=== PATIENT | male | born 1950 | race Caucasian/White ===

== ENCOUNTER 2018-12-13 13:22 | Emergency (ER) | payer MEDICARE ==
[2018-12-13 13:57] VITALS: BP 125/74
--- NOTE | 2018-12-13 14:54 | UC ---
Ear Complaint HPI - HPI Summary HPI Summary: tickling sensation in left ear--is concerned it is an aunt - History of Current Complaint Chief Complaint: UCEar Stated Complaint: FB IN EAR Time Seen by Provider: 12/13/18 14:44 Hx Obtained From: Patient Onset/Duration: Gradual Onset, Lasting Days - 2, Still Present Pain Intensity: 0 Pain Scale Used: 0-10 Numeric Aggravating Factors: FB - ?? - Allergies/Home Medications Allergies/Adverse Reactions: Allergies Allergy/AdvReac Type Severity Reaction Status Date / Time No Known Allergies Allergy Verified 12/13/18 13:57 Home Medications: Home Medications BuPROPion XL* [Bupropion XL*] 300 mg PO DAILY 12/13/18 [History Confirmed ] Carbidopa/Levodop CR 50/200(*) [Sinemet CR 50/200(*)] 1 tab.cr PO 12/13/18 [ History] Carbidopa/Levodopa 36.25-145mg [Rytary ER 36.25 mg-145 mg Cap] 1 dose PO [History Confirmed 12/13/18] Cyanocobalamin TAB* [Vitamin B12 TAB*] 500 mcg PO DAILY 12/13/18 [History Confirmed 12/13/18] Diazepam TAB(*) [Valium TAB(*)] 5 mg PO TID PRN 12/13/18 [History Confirmed ] Escitalopram * [Lexapro 10 mg (NF)] 10 mg PO DAILY 12/13/18 [History Confirmed 12/13/18] Furosemide TAB* [Lasix TAB*] 20 mg PO DAILY 12/13/18 [History Confirmed 12/13/18 ] Glycopyrrolate 1 mg PO 12/13/18 [History Confirmed 12/13/18] Linaclotide [Linzess] 290 mcg PO DAILY 12/13/18 [History Confirmed 12/13/18] Potassium Chlor TAB* [Klor Con ER TAB*] 20 meq PO DAILY 12/13/18 [History Confirmed 12/13/18] Pregabalin 75 mg PO DAILY 12/13/18 [History Confirmed 12/13/18] PMH/Surg Hx/FS Hx/Imm Hx Previously Healthy: No GI/ History: Gastroesophageal Reflux Neurological History: Other Other Neurological History: Parkinsons Psychological History: Depression - Surgical History Surgical History: Yes Surgery Procedure, Year, and Place: TONSILS 1961. BLADDER BIOPSY - Family History Known Family History: Positive: None - Social History Occupation: Retired Lives: Alone Alcohol Use: Weekly Substance Use Type: None Smoking Status (MU): Never Smoked Tobacco Review of Systems All Other Systems Reviewed And Are Negative: Yes Constitutional: Positive: Negative Skin: Positive: Negative Eyes: Positive: Negative ENT: Positive: Ear Ache - ?fb left ear Respiratory: Positive: Negative Cardiovascular: Positive: Negative Gastrointestinal: Positive: Negative Genitourinary: Positive: Negative Motor: Positive: Negative Neurovascular: Positive: Negative Musculoskeletal: Positive: Negative Neurological: Positive: Negative Psychological: Positive: Negative Is Patient Immunocompromised?: No Physical Exam Triage Information Reviewed: Yes Appearance: Well-Appearing, No Pain Distress, Well-Nourished Vital Signs: Initial Vital Signs Temp 98.7 F 12/13/18 13:52 Pulse 80 12/13/18 13:52 Resp 16 12/13/18 13:52 BP 125/74 12/13/18 13:52 Pulse Ox 97 12/13/18 13:52 Vital Signs Reviewed: Yes Eye Exam: Normal Eyes: Positive: Conjunctiva Clear ENT Exam: Normal ENT: Positive: Normal ENT inspection, Hearing grossly normal, TMs normal - small amount of wax in left canal. Negative: Nasal congestion, Trismus, Muffled voice, Hoarse voice Dental Exam: Normal Neck exam: Normal Neck: Positive: Supple, Nontender, No Lymphadenopathy Respiratory Exam: Normal Respiratory: Positive: Chest non-tender, No respiratory distress, No accessory muscle use Cardiovascular Exam: Normal Cardiovascular: Positive: RRR, Pulses Normal, Brisk Capillary Refill Musculoskeletal Exam: Normal Musculoskeletal: Positive: Strength Intact, ROM Intact, No Edema Neurological Exam: Normal Neurological: Positive: Alert, Muscle Tone Normal Psychological Exam: Normal Skin Exam: Normal Re-Evaluation - Re-Evaluation First Eval Change: Improved Ear Complaint Course/Dx - Course Course Of Treatment: may use waxing softening tratment s prn follow with pcp prn - Differential Dx/Diagnosis Provider Diagnosis: Cerumen debris on tympanic membrane of left ear Discharge - Sign-Out/Discharge Documenting (check all that apply): Patient Departure All imaging exams completed and their final reports reviewed: No Studies - Discharge Plan Condition: Stable Disposition: HOME Patient Education Materials: Cerumen Impaction (ED) Referrals: Tiarra Pascual MD [Primary Care Provider] - If Needed - Billing Disposition and Condition Condition: STABLE Disposition: Home
== END 2018-12-13 15:14 | disposition home or self-care (01) ==
LOC: UCEAST 13:22
DX: H61.22 Impacted cerumen, left ear (principal); K21.9 Gastro-esophageal reflux disease without esophagitis; F32.9 Major depressive disorder, single episode, unspecified; G20 Parkinson's disease
CPT/HCPCS: 99213; G0463

== ENCOUNTER 2021-03-02 14:14 | Inpatient (IN) ==
[2021-03-02] MEDS ORDERED: Magnesium Hydroxide LIQ 30 ML UDC PO PRN (15:40)
[2021-03-02] MEDS ORDERED: Al Hydrox/Mg Hydrox/Simet LIQ 30 ML UDC PO PRN (15:40)
[2021-03-02] MEDS ORDERED: Senna TAB 8.6 mg TAB PO PRN (15:40)
[2021-03-02] MEDS: Carbidopa/Levodop CR 50/200 TAB.CR PO SCH (23:36)
[2021-03-02] MEDS: LEVODOPA PO SCH (23:36)
[2021-03-02] MEDS: CARBIDOPA PO SCH (23:36)
[2021-03-02] MEDS: GLYCOPYRROLATE 1 MG PO SCH (23:37)
[2021-03-02] MEDS: PTO: Multivitamins/Mins AREDS2 (NF) CAP PO SCH (23:38)
[2021-03-02] MEDS: Enoxaparin 40 MG/0.4 ML SYR SUBCUT SCH (23:38)
[2021-03-03 03:34] LABS: Urine Appearance Clear; Urine Bilirubin Negative (Negative); Urine Blood Negative (Negative); Urine Color Yellow; Urine Glucose Negative (Negative); Urine Ketones Trace (Negative); Urine Nitrite Negative (Negative); Urine Protein Negative (Negative); Urine Specific Gravity 1.015 (1.002-1.030); Urine Urobilinogen Negative (Negative)
[2021-03-03 07:26] LABS: ABS Basophils 0.1 10^3/ul (0-0.2); ABS Eosinophils 0.2 10^3/ul (0-0.6); ABS Lymphocytes 1.4 10^3/ul (1.0-4.8); ABS Monocytes 0.9 10^3/ul (0-0.8); ABS Neutrophils 4.9 10^3/ul (1.5-7.7); Eosinophil % 2.8 %; Hematocrit 40 % (42-52); Hemoglobin 13.3 g/dL (14.0-18.0); Lymphocyte % 18.7 %; Mean Corpuscular HGB Conc 34 g/dL (31-36); Mean Corpuscular Hemoglobin 32 pg (27-31); Mean Corpuscular Volume 95 fL (80-94); Mean Platelet Volume 7.8 fL (7.4-10.4); Nucleated Red Blood Cells % 0.1; Platelet Count 312 10^3/uL (150-450); Red Cell Distribution Width 14 % (10-15); White Blood Count 7.4 10^3/uL (3.5-10.8)
[2021-03-03 07:44] LABS: ALT < 3 U/L (7-52); AST 11 U/L (13-39); Albumin 3.5 g/dL (3.2-5.2); Albumin/Globulin Ratio 1.3 (1-3); Alkaline Phosphatase 101 U/L (35-149); Anion Gap 4 mmol/L (2-11); Blood Urea Nitrogen 11 mg/dL (6-24); CO2 Carbon Dioxide 32 mmol/L (22-32); Calcium 8.5 mg/dL (8.6-10.3); Chloride 101 mmol/L (101-111); Globulin 2.8 g/dL (2-4); Glucose 93 mg/dL (70-100); Potassium 3.6 mmol/L (3.5-5.0); Sodium 137 mmol/L (135-145); Total Protein 6.3 g/dL (6.4-8.9)
[2021-03-03] MEDS: LEVODOPA PO SCH ×6 (08:12→20:37)
[2021-03-03] MEDS: CARBIDOPA PO SCH ×6 (08:12→20:37)
[2021-03-03] MEDS: GLYCOPYRROLATE 1 MG PO SCH ×2 (08:13→20:15)
[2021-03-03] MEDS: PTO: Linaclotide 290 mcg CAP (NF) PO SCH (08:14)
[2021-03-03] MEDS: Potassium Chloride LIQUID 20 MEQ/15 ML LIQUID PO SCH (09:31)
[2021-03-03] MEDS: DEXTROAMPHETAMINE 15 MG PO SCH (09:32)
[2021-03-03] MEDS: Carbidopa/Levodop CR 50/200 TAB.CR PO SCH ×2 (09:32→20:17)
[2021-03-03] MEDS: Polyethylene Glycol 3350 17 GM PACKET PO SCH (09:33)
[2021-03-03] MEDS: PTO: Multivitamins/Mins AREDS2 (NF) CAP PO SCH ×2 (09:33→20:37)
[2021-03-03] MEDS: Cholecalciferol (VIT D3) 1,000 unit TAB PO SCH (09:33)
[2021-03-03] MEDS: Enoxaparin 40 MG/0.4 ML SYR SUBCUT SCH (20:30)
[2021-03-04] MEDS: Carbidopa/Levodop CR 50/200 TAB.CR PO SCH ×2 (08:10→20:16)
[2021-03-04] MEDS: LEVODOPA PO SCH ×5 (08:10→20:24)
[2021-03-04] MEDS: CARBIDOPA PO SCH ×5 (08:10→20:24)
[2021-03-04] MEDS: GLYCOPYRROLATE 1 MG PO SCH ×2 (08:12→20:25)
[2021-03-04] MEDS: PTO: Linaclotide 290 mcg CAP (NF) PO SCH (08:15)
[2021-03-04] MEDS: DEXTROAMPHETAMINE 15 MG PO SCH (08:15)
[2021-03-04] MEDS: Potassium Chloride LIQUID 20 MEQ/15 ML LIQUID PO SCH (08:16)
[2021-03-04] MEDS: Polyethylene Glycol 3350 17 GM PACKET PO SCH (08:16)
[2021-03-04] MEDS: Cholecalciferol (VIT D3) 1,000 unit TAB PO SCH (08:16)
[2021-03-04] MEDS: PTO: Multivitamins/Mins AREDS2 (NF) CAP PO SCH ×2 (08:17→20:27)
[2021-03-04] MEDS: Enoxaparin 40 MG/0.4 ML SYR SUBCUT SCH (20:28)
[2021-03-05] MEDS: Carbidopa/Levodop CR 50/200 TAB.CR PO SCH ×2 (08:16→20:03)
[2021-03-05] MEDS: LEVODOPA PO SCH ×5 (08:17→20:08)
[2021-03-05] MEDS: CARBIDOPA PO SCH ×5 (08:17→20:08)
[2021-03-05] MEDS: Cholecalciferol (VIT D3) 1,000 unit TAB PO SCH (08:21)
[2021-03-05] MEDS: DEXTROAMPHETAMINE 15 MG PO SCH (08:22)
[2021-03-05] MEDS: PTO: Multivitamins/Mins AREDS2 (NF) CAP PO SCH ×2 (08:24→20:07)
[2021-03-05] MEDS: Potassium Chloride LIQUID 20 MEQ/15 ML LIQUID PO SCH (08:24)
[2021-03-05] MEDS: Polyethylene Glycol 3350 17 GM PACKET PO SCH (08:24)
[2021-03-05] MEDS: PTO: Linaclotide 290 mcg CAP (NF) PO SCH (08:25)
[2021-03-05] MEDS: GLYCOPYRROLATE 1 MG PO SCH ×2 (08:26→19:58)
[2021-03-05] MEDS: Enoxaparin 40 MG/0.4 ML SYR SUBCUT SCH (20:07)
[2021-03-06] MEDS: Polyethylene Glycol 3350 17 GM PACKET PO SCH (08:04)
[2021-03-06] MEDS: LEVODOPA PO SCH ×5 (08:06→20:27)
[2021-03-06] MEDS: CARBIDOPA PO SCH ×5 (08:06→20:27)
[2021-03-06] MEDS: Carbidopa/Levodop CR 50/200 TAB.CR PO SCH ×2 (08:07→20:12)
[2021-03-06] MEDS: Cholecalciferol (VIT D3) 1,000 unit TAB PO SCH (08:07)
[2021-03-06] MEDS: DEXTROAMPHETAMINE 15 MG PO SCH (08:07)
[2021-03-06] MEDS: GLYCOPYRROLATE 1 MG PO SCH ×2 (08:08→20:10)
[2021-03-06] MEDS: Potassium Chloride LIQUID 20 MEQ/15 ML LIQUID PO SCH (08:10)
[2021-03-06] MEDS: PTO: Linaclotide 290 mcg CAP (NF) PO SCH (08:10)
[2021-03-06] MEDS: PTO: Multivitamins/Mins AREDS2 (NF) CAP PO SCH ×2 (08:13→20:14)
[2021-03-06] MEDS: Enoxaparin 40 MG/0.4 ML SYR SUBCUT SCH (20:13)
[2021-03-07] MEDS: Polyethylene Glycol 3350 17 GM PACKET PO SCH (08:12)
[2021-03-07] MEDS: Potassium Chloride LIQUID 20 MEQ/15 ML LIQUID PO SCH (08:17)
[2021-03-07] MEDS: Carbidopa/Levodop CR 50/200 TAB.CR PO SCH ×2 (08:17→20:18)
[2021-03-07] MEDS: LEVODOPA PO SCH ×5 (08:18→20:19)
[2021-03-07] MEDS: CARBIDOPA PO SCH ×5 (08:18→20:19)
[2021-03-07] MEDS: GLYCOPYRROLATE 1 MG PO SCH ×2 (08:19→20:11)
[2021-03-07] MEDS: PTO: Linaclotide 290 mcg CAP (NF) PO SCH (08:20)
[2021-03-07] MEDS: Cholecalciferol (VIT D3) 1,000 unit TAB PO SCH (10:35)
[2021-03-07] MEDS: PTO: Multivitamins/Mins AREDS2 (NF) CAP PO SCH ×2 (10:38→20:20)
[2021-03-07] MEDS: DEXTROAMPHETAMINE 15 MG PO SCH (10:38)
[2021-03-07] MEDS: Enoxaparin 40 MG/0.4 ML SYR SUBCUT SCH (20:20)
[2021-03-08 05:04] VITALS: BP 132/80
[2021-03-08] MEDS: Carbidopa/Levodop CR 50/200 TAB.CR PO SCH (08:59)
[2021-03-08] MEDS: LEVODOPA PO SCH (09:00)
[2021-03-08] MEDS: CARBIDOPA PO SCH (09:00)
[2021-03-08] MEDS: GLYCOPYRROLATE 1 MG PO SCH (09:00)
[2021-03-08] MEDS: PTO: Linaclotide 290 mcg CAP (NF) PO SCH (09:01)
[2021-03-08] MEDS: Polyethylene Glycol 3350 17 GM PACKET PO SCH (09:01)
[2021-03-08] MEDS: Potassium Chloride LIQUID 20 MEQ/15 ML LIQUID PO SCH (09:01)
[2021-03-08] MEDS: Cholecalciferol (VIT D3) 1,000 unit TAB PO SCH (09:01)
[2021-03-08] MEDS: DEXTROAMPHETAMINE 15 MG PO SCH (09:01)
[2021-03-08] MEDS: PTO: Multivitamins/Mins AREDS2 (NF) CAP PO SCH (09:01)
== END 2021-03-08 12:55 | DRG 57 ==
LOC: PMRU 21:18
PROVIDERS: ADMIT Physical Medicine & Rehabilitation; ATTEND Physical Medicine & Rehabilitation

== ENCOUNTER 2024-06-03 10:51 | Observation (INO) ==
[2024-06-03] MEDS ORDERED: Atropine 1 MG/ML INJ 1 ML VIAL IV PUSH ONE (10:52)
[2024-06-03] MEDS ORDERED: Atropine 0.1 MG/ML 10 ml SYR (1 mg) ONE (10:55)
[2024-06-03] MEDS: Atropine 0.1 MG/ML 10 ml SYR (1 mg) IV PUSH ONE (11:00)
[2024-06-03 11:13] LABS: ABS Basophils 0.1 10^3/uL (0.0-0.1); ABS Eosinophils 0.1 10^3/uL (0.0-0.5); ABS Lymphocytes 1.3 10^3/uL (1.0-4.8); ABS Monocytes 0.8 10^3/uL (0.0-1.1); ABS Neutrophils 6.2 10^3/uL (1.5-7.6); ABS Nucleated RBC 0.01 10^3/ul; Eosinophil % 0.9 %; Hematocrit 41.4 % (38-53); Hemoglobin 13.6 g/dL (13.2-16.3); Lymphocyte % 15.7 %; Mean Corpuscular Hgb Conc 32.9 g/dL (31-36); Mean Corpuscular Volume 94.1 fL (80-97); Mean Platelet Volume 8.8 fL (7.5-11.2); Nucleated Red Blood Cells % 0.1 %/100WBC (0.0-0.8); Platelet Count 239 10^3/uL (150-450); Red Cell Distribution Width 15.6 % (12-17); White Blood Count 8.6 10^3/uL (3.6-10.2)
[2024-06-03 11:36] LABS: High Sens Troponin Baseline 4 pg/mL (<20)
[2024-06-03 12:15] LABS: ALT < 3 U/L (7-52); Albumin 3.6 g/dL (3.5-5.7); Albumin/Globulin Ratio 1.6 (1-3); Alkaline Phosphatase 78 U/L (35-149); Blood Urea Nitrogen 22 mg/dL (6-24); CO2 Carbon Dioxide 27 mmol/L (22-32); Calcium 8.7 mg/dL (8.6-10.3); Chloride 104 mmol/L (101-111); Creatinine, Serum 0.61 mg/dL (0.67-1.17); Globulin 2.3 g/dL (2-4); Glucose 107 mg/dL (70-100); Sodium 137 mmol/L (135-145); Total Bilirubin 0.9 mg/dL (0.2-1.0); Total Protein 5.9 g/dL (6.4-8.9); eGFR CKD-EPI 99.5 (>60)
[2024-06-03] MEDS: Lactated Ringers 1000 ml BAG 1,000 ML IV ONE ×2 (12:21→17:49)
[2024-06-03 12:26] LABS: AST 10 U/L (13-39); Anion Gap 6 mmol/L (2-16); Potassium 3.5 mmol/L (3.5-5.0)
[2024-06-03 12:38] LABS: High Sensitivity Troponin 1 Hr 3 pg/mL (<20)
[2024-06-03 13:43] LABS: Urine Appearance Clear; Urine Bilirubin Negative (Negative); Urine Blood Negative (Negative); Urine Color Yellow; Urine Glucose 4+ (>=1000 mg/dL) (Negative); Urine Ketones 1+ (Negative); Urine Nitrite Negative (Negative); Urine Protein Trace (Negative); Urine Urobilinogen Negative (Negative); Urine pH 6.5 (5.0-8.0)
[2024-06-03] MEDS: Carbidopa/Levodopa ER 25/100 TABLET.ER PO ONE (14:25)
[2024-06-03] MEDS: Carbidopa/Levodop 25/100 MG TAB PO ONE (14:25)
[2024-06-03] MEDS ORDERED: Polyethylene Glycol 3350 17 GM PACKET PO PRN (17:52)
[2024-06-03] MEDS: CARBIDOPA LEVODOPA PO SCH (20:03)
[2024-06-03] MEDS: Multivitamins/Mins AREDS2 (NF) CAP PO SCH (20:04)
[2024-06-03] MEDS: MIRABEGRON 50 MG PO SCH (20:05)
[2024-06-03] MEDS: Carbidopa/Levodop 25/100 MG TAB PO SCH (20:05)
[2024-06-03] MEDS: CMCS:Dorzolamide/Timolol OPTH (NF) 10 ML BOT BOTH EYES SCH (20:07)
[2024-06-03] MEDS ORDERED: Carbidopa/Levodop 25/100 MG TAB PO SCH (21:00)
[2024-06-04 06:31] LABS: Calcium 8.6 mg/dL (8.6-10.3); Creatinine, Serum 0.53 mg/dL (0.67-1.17); Potassium 3.7 mmol/L (3.5-5.0); eGFR CKD-EPI 103.9 (>60)
[2024-06-04 06:56] LABS: Hematocrit 41.6 % (38-53); Mean Corpuscular Hemoglobin 31.8 pg (27-33); Mean Corpuscular Hgb Conc 33.6 g/dL (31-36); Mean Corpuscular Volume 94.6 fL (80-97); Red Cell Distribution Width 16.1 % (12-17); White Blood Count 7.1 10^3/uL (3.6-10.2)
[2024-06-04 07:36] LABS: ABS Eosinophils 0.1 10^3/uL (0.0-0.5); ABS Lymphocytes 1.6 10^3/uL (1.0-4.8); ABS Monocytes 0.7 10^3/uL (0.0-1.1); ABS Neutrophils 4.6 10^3/uL (1.5-7.6); Eosinophil % 1.1 %; Lymphocyte % 22.9 %; Mean Platelet Volume 9.3 fL (7.5-11.2); Platelet Count 220 10^3/uL (150-450)
[2024-06-04] MEDS ORDERED: ROTIGOTINE TOPICAL SCH (09:00)
[2024-06-04] MEDS: Cholecalciferol (VIT D3) 1,000 unit TAB PO SCH (09:35)
[2024-06-04] MEDS: Amantadine SOLN ORALSYR 10 mg/ml PO SCH (09:37)
[2024-06-04] MEDS: Escitalopram SOLN ORALSYR 5 MG/5 ML PO SCH (09:37)
[2024-06-04] MEDS: [UNRECOGNIZED DRUG - REMARK] BOTH EYES SCH (09:38)
[2024-06-04] MEDS: LINACLOTIDE 290 MCG PO SCH (09:39)
[2024-06-04] MEDS: CMCS: LINACLOTIDE 72 MCG CAP (NF) PO SCH (11:30)
[2024-06-04] MEDS ORDERED: Sulfur Hexaflouride MICROSPHR 25 MG VIAL IV PRN (14:08)
[2024-06-04 15:39] VITALS: BP 130/93
[2024-06-04] MEDS: Carbidopa/Levodop 25/100 MG TAB PO PRN (15:59)
[2024-06-04] MEDS ORDERED: CMC:Mirabegron 25 mg ER TAB (NF) PO SCH (21:00)
[2024-06-04] MEDS ORDERED: Enoxaparin 40 MG/0.4 ML SYR SUBCUT SCH (21:00)
== END 2024-06-04 18:15 | disposition left against medical advice (07) ==
LOC: EDHOLD 10:51 → ED 10:51 → SUATTDRO 16:38 → MED 20:17
PROVIDERS: ADMIT Internal Medicine; ATTEND Student in an Organized Health Care Education/Training Program